=== PATIENT | female | born 1950 | race Caucasian/White ===

== ENCOUNTER 2021-03-20 00:48 | Emergency (ER) | payer OTHER ==
[~2021-03-20] VITALS: Ht 154.9 cm; Wt 99.8 kg
[~2021-03-20 00:48] MED LIST: ASPIR 8181 MG PO; CIPRO500 MG PO; HYZAAR 50-12.1 UDTAB PO; INTESTINEX680 MG PO; METRONIDAZOLE500 MG PO; NAPR500T14 PO; OXYC1TAB9 PO; PRILOSEC20 MG PO; REFRESH CONTACT12 ML; SYNTHROID50 MCG PO; XIIDRA1 EACH; ZOCOR20 MG; [UNRECOGNIZED DRUG - CODE]
[2021-03-20] MEDS ORDERED: MEDI-MECLIZINE25 MG PO (05:02)
== END 2021-03-20 05:13 | disposition home or self-care (01) ==
LOC: ER 00:48
DX: R42 Dizziness and giddiness (principal); R11.11 Vomiting without nausea

== ENCOUNTER 2021-07-14 01:07 | Emergency (ER) | payer OTHER ==
[~2021-07-14] VITALS: Ht 154.9 cm; Wt 78.5 kg
[~2021-07-14 01:07] MED LIST changes: +MEDI-MECLIZINE25 MG PO
[2021-07-14] MEDS ORDERED: ATACAND4 MG (01:22)
[2021-07-14] MEDS ORDERED: MECLIZINE HCL25 MG PO (06:15)
[2021-07-14] MEDS ORDERED: ZEBUTAL 50-3251 EACH PO (06:15)
== END 2021-07-14 06:21 | disposition home or self-care (01) ==
LOC: ER 01:07
DX: R42 Dizziness and giddiness (principal); M54.2 Cervicalgia; M62.838 Other muscle spasm; R51.9 Headache, unspecified